=== PATIENT | female | born 1960 | race Caucasian/White ===

== ENCOUNTER 2024-05-05 19:22 | Emergency (ER) | payer MEDICARE ==
[~2024-05-05] VITALS: Ht 160 cm; Wt 125.2 kg
[2024-05-05 19:53] VITALS: PULSE 88; RESP 26; TEMP 97.9
[2024-05-05] MEDS: ALBUTEROL/IPRATROPIUM 3 ML NEB NEB ONE (20:44)
[2024-05-05] MEDS ORDERED: VENTOLIN HFA18 GM INH (21:28)
[2024-05-05] MEDS ORDERED: DIPHENHYDRAMINE25 M2 PO (21:28)
[2024-05-05] MEDS ORDERED: IPRAT-ALBUT 0.5-3 ML NEB (21:28)
[2024-05-05] MEDS ORDERED: EASY NEB COMPR1 EACH (21:28)
[2024-05-05] MEDS ORDERED: AZITHROMYCIN250 MG PO (21:28)
[2024-05-05 21:56] VITALS: BP 156/89; PULSE 89; RESP 22; TEMP 97.7; O2SAT 98
== END 2024-05-05 21:54 | disposition home or self-care (01) ==
LOC: FSED 19:31
DX: R06.02 Shortness of breath (principal); J20.9 Acute bronchitis, unspecified; R05.9 Cough, unspecified; J45.909 Unspecified asthma, uncomplicated; I10 Essential (primary) hypertension; E11.65 Type 2 diabetes mellitus with hyperglycemia; Z11.52 Encounter for screening for COVID-19; R94.31 Abnormal electrocardiogram [ECG] [EKG]
CPT/HCPCS: 71046; 93005; 94760; 99284; J0696

== ENCOUNTER 2024-05-10 14:40 | Emergency (ER) | payer MEDICARE ==
[~2024-05-10] VITALS: Ht 160 cm; Wt 122.9 kg
[~2024-05-10 14:40] MED LIST: AZITHROMYCIN250 MG PO; DIPHENHYDRAMINE25 M2 PO; EASY NEB COMPR1 EACH; IPRAT-ALBUT 0.5-3 ML NEB; VENTOLIN HFA18 GM INH
[2024-05-10] MEDS ORDERED: LEVOFLOXACIN 500 MG TAB PO ONE (15:30)
[2024-05-10] MEDS ORDERED: METFORMIN HCL500 MG PO (15:41)
[2024-05-10] MEDS ORDERED: LOSARTAN POTASS25 MG PO (15:41)
[2024-05-10] MEDS ORDERED: AMLODIPINE BESY10 MG PO (15:41)
[2024-05-10] MEDS ORDERED: IBUPROFEN600 MG PO ×2 (15:41→15:45)
[2024-05-10] MEDS ORDERED: LEXAPRO20 MG PO (15:41)
[2024-05-10] MEDS ORDERED: OZEMPIC2 MG/0.75 (15:41)
[2024-05-10] MEDS ORDERED: JARDIANCE10 MG (15:41)
[2024-05-10] MEDS ORDERED: CEFDINIR300 MG PO (15:43)
[2024-05-10] MEDS ORDERED: TYLENOL325 MG PO (15:45)
[2024-05-10 16:43] VITALS: PULSE 78; RESP 18; TEMP 98.1; O2SAT 96
[2024-05-10] MEDS: KETOROLAC TROMETHAMINE 30 MG/ML VIAL IM ONE (16:49)
[2024-05-10] MEDS: CEPHALEXIN MONOHYDRATE 250 MG CAP PO ONE (16:49)
== END 2024-05-10 16:43 | disposition home or self-care (01) ==
LOC: FSED 14:43
DX: M25.562 Pain in left knee (principal); M25.561 Pain in right knee; M17.0 Bilateral primary osteoarthritis of knee; J40 Bronchitis, not specified as acute or chronic; E11.65 Type 2 diabetes mellitus with hyperglycemia; I10 Essential (primary) hypertension; Z11.52 Encounter for screening for COVID-19
CPT/HCPCS: 71046; 73560 ×2; 96372; 99283; J1885

== ENCOUNTER 2024-06-02 17:28 | Observation (INO) | payer MEDICARE ==
[~2024-06-02] VITALS: Ht 160 cm; Wt 121.1 kg
[~2024-06-02 17:28] MED LIST changes: +AMLODIPINE BESY10 MG PO; +CEFDINIR300 MG PO; +IBUPROFEN600 MG PO; +JARDIANCE10 MG; +LEXAPRO20 MG PO; +LOSARTAN POTASS25 MG PO; +METFORMIN HCL500 MG PO; +OZEMPIC2 MG/0.75; +TYLENOL325 MG PO
[2024-06-02] MEDS: FAMOTIDINE 20 MG/2 ML VIAL IV ONE (18:31)
[2024-06-02] MEDS: ONDANSETRON HCL INJ 2MG/ML 2ML 2 MG/ML VIAL IV ONE (18:31)
[2024-06-02] MEDS: LACTATED RINGER'S 1,000 ML INJ ONE (18:32)
[2024-06-02] MEDS: KETOROLAC TROMETHAMINE 30 MG/ML VIAL IV ONE (18:38)
[2024-06-02] MEDS ORDERED: ENALAPRILAT IV INJ 1.25 MG/ML VIAL IV PRN (18:45)
[2024-06-02] MEDS ORDERED: ACETAMINOPHEN 325 MG TAB PO PRN (18:45)
[2024-06-02] MEDS ORDERED: SODIUM CHLORIDE FLUSH 10 ML SYR INJ PRN (18:45)
[2024-06-02] MEDS ORDERED: DIPHENHYDRAMINE HCL INJ 50 MG/ML VIAL IV PRN (18:45)
[2024-06-02] MEDS ORDERED: ONDANSETRON HCL INJ 2MG/ML 2ML 2 MG/ML VIAL IV PRN (18:45)
[2024-06-02] MEDS ORDERED: DEXTROSE 50% SYRINGE 50 ML IV PRN (18:45)
[2024-06-02 19:10] VITALS: PULSE 74; RESP 20; TEMP 98.1
[2024-06-02] MEDS ORDERED: ZOLPIDEM TARTRATE 5 MG TAB PO PRN (21:00)
[2024-06-02] MEDS: INSULIN REGULAR, HUMAN 100 UNIT/1 ML SQ SCH (21:00)
[2024-06-02] MEDS: IBUPROFEN 400 MG TAB PO ONE (22:45)
[2024-06-02] MEDS: LACTATED RINGER'S 1,000 ML IV SCH (23:07)
[2024-06-02] MEDS: ASPIRIN 81 MG CHEW TAB PO STA (23:57)
[2024-06-03] VITALS: BP_SYST 103; BP_SYST 124; BP_DIAS 60; BP_DIAS 93; PULSE 68; PULSE 72; RESP 18; TEMP 98.1; O2SAT 97
[2024-06-03] MEDS: ASPIRIN 81 MG CHEW TAB PO STA (00:04)
[2024-06-03 00:57] VITALS: BP 124/93; PULSE 68; RESP 18; TEMP 98.1; O2SAT 97
[2024-06-03 03:41] LABS: TROPONIN I 0.006 ng/mL (0-0.300)
[2024-06-03 04:00] VITALS: BP 122/58; PULSE 98; RESP 18; TEMP 98.1; O2SAT 97
[2024-06-03] MEDS: FAMOTIDINE 20 MG TAB PO SCH (05:33)
[2024-06-03] MEDS ORDERED: ALBUTEROL/IPRATROPIUM 3 ML NEB NEB PRN (05:45)
[2024-06-03 06:44] VITALS: PULSE 74; RESP 15; O2SAT 96
[2024-06-03] MEDS ORDERED: ASPIRIN 81 MG CHEW TAB PO SCH (09:00)
[2024-06-03] MEDS ORDERED: VALSARTAN 160 MG TAB PO SCH (09:00)
[2024-06-03] MEDS ORDERED: METOPROLOL TARTRATE 25 MG TAB PO SCH (09:00)
[2024-06-03 09:41] VITALS: BP 138/88; PULSE 68; RESP 18; TEMP 97.3; O2SAT 97
[2024-06-03] MEDS ORDERED: ENOXAPARIN SOD INJ 40 MG/0.4 ML SYR SC SCH (17:00)
== END 2024-06-03 10:10 | disposition left against medical advice (07) ==
LOC: FSED 17:33 → ERHOLD 19:28 → MED/SURG2 21:39
PROVIDERS: ADMIT Internal Medicine; ATTEND Internal Medicine
DX: R07.9 Chest pain, unspecified (principal); E86.0 Dehydration; R11.2 Nausea with vomiting, unspecified; R00.2 Palpitations; Z53.29 Procedure and treatment not carried out because of patient's decision for other reasons; E11.9 Type 2 diabetes mellitus without complications; E66.01 Morbid (severe) obesity due to excess calories; Z68.42 Body mass index [BMI] 45.0-49.9, adult; I10 Essential (primary) hypertension; E78.5 Hyperlipidemia, unspecified; K21.9 Gastro-esophageal reflux disease without esophagitis; F41.8 Other specified anxiety disorders; M19.90 Unspecified osteoarthritis, unspecified site
CPT/HCPCS: 36415 ×2; 71046; 80053; 81003; 82550; 82553; 82948 ×2; 84484 ×2; 85025; 93005; 94799; 99284; G0378 ×2; J1885; J2405; J7121